=== PATIENT | male | born 1935 | race Caucasian/White ===

== ENCOUNTER 2020-04-10 07:02 | Day surgery (SDC) | payer MEDICARE, BC ==
[~2020-04-10 07:02] MED LIST: Lactated Ringers 1,000 ML IV SCH; Lidocaine 1%/Sod Bicarbonate in NS 8.4% 1 ML Syringe IDERM PRN; Sodium Chloride 0.9% 10 ML Syringe FLUSH PRN
[2020-04-10] MEDS ORDERED: Rocuronium 50 MG/5 ML Vial ONE (07:12)
[2020-04-10] MEDS ORDERED: Lidocaine 1% 4 ML ONE (07:13)
[2020-04-10] MEDS ORDERED: fentaNYL 250 MCG/5 ML SDV ONE (07:13)
[2020-04-10] MEDS ORDERED: Propofol 200 MG/20 ML SDV ONE (07:13)
[2020-04-10] MEDS ORDERED: Ondansetron 4 MG/2 ML SDV ONE (07:13)
[2020-04-10] MEDS ORDERED: ceFAZolin 1 GM Vial ONE (07:15)
[2020-04-10] MEDS ORDERED: Bupivacaine 0.5%/EPINEPHrine 1:200,000 50 ML MDV ONE (07:19)
--- NOTE | 2020-04-10 07:31 | PCM.PREANE ---
Preanesthetic Assessment - Lab Values: Laboratory Last Values COVID-19 PCR Not detected (NOT DETECT) 04/05/20 19:22 - Allergies Allergies/Adverse Reactions: Allergies Allergy/AdvReac Type Severity Reaction Status Date / Time Unable to Assess Allergy Verified 04/07/20 08:49 PreAnesthesia Questionnaire HEENT History: Reports: Allergic Rhinitis Cardiovascular History: Reports: Afib, Aneurysm, Hypertension Other Cardiovascular History: thoracic aortic aneurysm Respiratory History: Reports: COPD Other Gastrointestinal History: abdominal hernia, RLQ mass Genitourinary History: Reports: Prostate Disorder Endocrine/Metabolic History: Reports: Diabetes, Type II - SUBSTANCE USE Smoking Status *Q: Former Smoker Recreational Drug Use History: No - HOME MEDS Home Medications: Home Meds Apixaban [Eliquis] 5 mg PO DAILY 04/07/20 [History] Digoxin [Digox] 125 mcg PO DAILY 04/07/20 [History] Loratadine [Claritin] 10 mg PO DAILY PRN 04/07/20 [History] Metoprolol Tartrate 25 mg PO BID 04/07/20 [History] Mometasone Furoate [Nasonex] 17 gm NASBOTH ASDIRECTED 04/07/20 [History] Montelukast [Singulair] 10 mg PO DAILY 04/07/20 [History] Pravastatin [Pravachol] 40 mg PO DAILY 04/07/20 [History] metFORMIN [Glucophage] 1,000 mg PO DAILY 04/07/20 [History] - CURRENT (IN HOUSE) MEDS Current Meds: Current Medications Lactated Ringer's (Ringers, Lactated) 1,000 mls @ 125 mls/hr IV ASDIRECTED KD Stop: 04/10/20 23:00 Lidocaine/Sodium Bicarbonate (Buffered Lidocaine 1% In Ns 8.4%) 0.25 ml IDERM ONETIME PRN PRN Reason: Prior to IV Start Stop: 04/10/20 18:00 Sodium Chloride (Saline Flush) 10 ml FLUSH ASDIRECTED PRN PRN Reason: Keep Vein Open Stop: 04/10/20 18:00 Discontinued Medications Bupivacaine HCl/Epinephrine Bitart (Marcaine 0.5%/Epinephrine 1:200,000) Confirm Administered Dose 50 ml .ROUTE .STK-MED ONE Stop: 04/10/20 07:20 Cefazolin Sodium (Ancef) Confirm Administered Dose 2 gm .ROUTE .STK-MED ONE Stop: 04/10/20 07:16 Fentanyl (Sublimaze) Confirm Administered Dose 250 mcg .ROUTE .STK-MED ONE Stop: 04/10/20 07:14 Lidocaine HCl (Xylocaine-Mpf 1%) Confirm Administered Dose 4 mls @ as directed .ROUTE .STK-MED ONE Stop: 04/10/20 07:14 Ondansetron HCl (Zofran) Confirm Administered Dose 4 mg .ROUTE .STK-MED ONE Stop: 04/10/20 07:14 Propofol (Diprivan 20 Ml) Confirm Administered Dose 200 mg .ROUTE .STK-MED ONE Stop: 04/10/20 07:14 Rocuronium [place] (Zemuron) Confirm Administered Dose 50 mg .ROUTE .STK-MED ONE Stop: 04/10/20 07:13
[2020-04-10] MEDS ORDERED: HYDROmorphone 0.5 MG/0.5 ML Syringe IVPUSH PRN (07:47)
[2020-04-10] MEDS ORDERED: fentaNYL 100 MCG/2 ML SDV IVPUSH PRN (07:47)
--- NOTE | 2020-04-10 07:51 | PCM.PREANE ---
Preanesthetic Assessment - Review of Systems General: No Symptoms Pulmonary: No Symptoms Cardiovascular: No Symptoms Gastrointestinal: No Symptoms Neurological: No Symptoms Other: Reports: Diabetes - Physical Assessment Vital Signs: Last Vital Signs Temp 97.9 F 04/10/20 07:10 Pulse 65 04/10/20 07:10 Resp 16 04/10/20 07:10 BP 139/78 04/10/20 07:10 Pulse Ox 99 04/10/20 07:10 ASA Class: 3 Mental Status: Alert & Oriented x3 Airway Class: Mallampati = 2 Dentition: Reports: Dentures, Edentulous, Missing Tooth/Teeth (only six teeth left on lower jaw ) ROM/Head Extension: Limited/Partial Lungs: Clear to Auscultation, Normal Respiratory Effort Cardiovascular: Irregular Rhythm (Afib, rate controlled) - Lab Values: Laboratory Last Values POC Glucose 118 mg/dL (83-110) H 04/10/20 07:33 COVID-19 PCR Not detected (NOT DETECT) 04/05/20 19:22 - Allergies Allergies/Adverse Reactions: Allergies Allergy/AdvReac Type Severity Reaction Status Date / Time Unable to Assess Allergy Verified 04/07/20 08:49 - Acknowledgements Anesthesia Type Planned: General Anesthesia Pt an Appropriate Candidate for the Planned Anesthesia: Yes Alternatives and Risks of Anesthesia Discussed w Pt/Guardian: Yes Pt/Guardian Understands and Agrees with Anesthesia Plan: Yes PreAnesthesia Questionnaire HEENT History: Reports: Allergic Rhinitis Cardiovascular History: Reports: Afib, Aneurysm, Hypertension Other Cardiovascular History: thoracic aortic aneurysm Respiratory History: Reports: COPD Other Gastrointestinal History: abdominal hernia, RLQ mass Genitourinary History: Reports: Prostate Disorder Endocrine/Metabolic History: Reports: Diabetes, Type II - SUBSTANCE USE Smoking Status *Q: Former Smoker Recreational Drug Use History: No - HOME MEDS Home Medications: Home Meds Apixaban [Eliquis] 5 mg PO DAILY 04/07/20 [History] Digoxin [Digox] 125 mcg PO DAILY 04/07/20 [History] Loratadine [Claritin] 10 mg PO DAILY PRN 04/07/20 [History] Metoprolol Tartrate 25 mg PO BID 04/07/20 [History] Mometasone Furoate [Nasonex] 17 gm NASBOTH ASDIRECTED 04/07/20 [History] Montelukast [Singulair] 10 mg PO DAILY 04/07/20 [History] Pravastatin [Pravachol] 40 mg PO DAILY 04/07/20 [History] metFORMIN [Glucophage] 1,000 mg PO DAILY 04/07/20 [History] - CURRENT (IN HOUSE) MEDS Current Meds: Current Medications Lactated Ringer's (Ringers, Lactated) 1,000 mls @ 125 mls/hr IV ASDIRECTED KD Stop: 04/10/20 23:00 Lidocaine/Sodium Bicarbonate (Buffered Lidocaine 1% In Ns 8.4%) 0.25 ml IDERM ONETIME PRN PRN Reason: Prior to IV Start Stop: 04/10/20 18:00 Sodium Chloride (Saline Flush) 10 ml FLUSH ASDIRECTED PRN PRN Reason: Keep Vein Open Stop: 04/10/20 18:00 Discontinued Medications Bupivacaine HCl/Epinephrine Bitart (Marcaine 0.5%/Epinephrine 1:200,000) Confirm Administered Dose 50 ml .ROUTE .STK-MED ONE Stop: 04/10/20 07:20 Cefazolin Sodium (Ancef) Confirm Administered Dose 2 gm .ROUTE .STK-MED ONE Stop: 04/10/20 07:16 Fentanyl (Sublimaze) Confirm Administered Dose 250 mcg .ROUTE .STK-MED ONE Stop: 04/10/20 07:14 Lidocaine HCl (Xylocaine-Mpf 1%) Confirm Administered Dose 4 mls @ as directed .ROUTE .STK-MED ONE Stop: 04/10/20 07:14 Ondansetron HCl (Zofran) Confirm Administered Dose 4 mg .ROUTE .STK-MED ONE Stop: 04/10/20 07:14 Propofol (Diprivan 20 Ml) Confirm Administered Dose 200 mg .ROUTE .STK-MED ONE Stop: 04/10/20 07:14 Rocuronium [place] (Zemuron) Confirm Administered Dose 50 mg .ROUTE .STK-MED ONE Stop: 04/10/20 07:13
[2020-04-10] MEDS ORDERED: Etomidate 2 MG/ML 20 ML SDV IVPUSH ONE (07:53)
[2020-04-10] MEDS ORDERED: Succinylcholine/Sod PF 100 MG/5 ML SYRINGE IV ONE (08:18)
[2020-04-10] MEDS ORDERED: Esmolol 100 MG/10 ML SDV ONE (10:09)
[2020-04-10] MEDS ORDERED: Metoprolol Tartrate 5 MG/5 ML SDV ONE (10:10)
--- NOTE | 2020-04-10 10:20 | PCM.PRNOTE ---
- Free Text/Narrative Note: Date: 04/10/2020 Operation: laparoscopic right inguinal hernia repair Findings: pantaloon hernia Surgeon: Zeb Figueroa MD Assisting: CHASITY Kowalski Pre-op abx: 2 g ancef IV EBL: 5 cc Specimen: hernia sac and contents Detailed Report: The patient was taken to the operating room and placed in supine position. T imeout was performed, and general endotracheal anesthesia initiated. A Hutson catheter was placed for decompression of the bladder, and the patient's left arm was tucked at his side. Abdominal hair was clipped, and the abdomen was prepped and draped in usual sterile fashion. A Veress needle was inserted at Eid's point for establishment of pneumoperitoneum. This was performed without complication. Air was then aspirated with a syringe at the mid epigastrium at the midline, and a 12 mm port was placed at this site. The 5 mm 30 degree laparoscope was inserted in the abdomen, and contents were inspected. Under laparoscopic visualization, additional 5 mm ports were placed at the left upper and right upper quadrants. The patient was positioned in Trendelenburg, and rotated towards the surgeon standing on the patient's left side. The hernia defect was visible; there were no incarcerated hernia contents. The defect appeared to be consistent with a pantaloon hernia, with a direct and indirect component straddling the right epigastric vessels. The direct hernia sac was inverted and amputated using the LigaSure. Next, monopolar energy was used to make a transverse cut through the peritoneum starting at approximately the level of the right ASIS over towards the right lateral umbilical fold. This plane was developed bluntly, down towards the pubic symphysis. The peritoneum was cleared from its anterior attachments. The indirect hernia sac which was wide and shallow was inverted. A lipomatous lesion was dissected free from the area where the direct hernia sac was. The sac and lesion which were labeled as hernia contents were passed off for pathologic analysis. With a good landing zone for the mesh established, a 10 x 15 cm oval shaped mesh with biologic coating was introduced into the field, this was cut to shape with scissors and introduced into the abdomen. The mesh was placed to provide good inferior and medial overlap at the right pubic tubercle. The mesh was secured at Pedro Luis's ligament with the secure strap. The mesh was laid flat and a few securing secure strap tacks were placed, taking care to avoid neurovascular structures. The peritoneal flap was then closed using the secure strap. The larger port site was closed at the level of fascia with a laparoscopic suture passer using 0 Vicryl. Pneumoperitoneum was released, and ports removed from the body. All skin incisions were closed with subcuticular absorbable Vicryl suture. Wounds were dressed with Dermabond. The patient tolerated the procedure well, no complications noted intraoperatively. Zeb Figueroa MD General Surgery
--- NOTE | 2020-04-10 10:55 | PCM.POSTAN ---
POST ANESTHESIA ASSESSMENT - MENTAL STATUS Mental Status: Alert, Oriented, Confused - VITAL SIGNS Vital Signs: Last Vital Signs Temp 98.5 F 04/10/20 10:02 Pulse 65 04/10/20 07:10 Resp 21 H 04/10/20 10:30 BP 161/74 H 04/10/20 10:30 Pulse Ox 99 04/10/20 10:30 - RESPIRATORY Respiratory Status: Respiratory Rate WNL, Airway Patent, O2 Saturation Stable - CARDIOVASCULAR CV Status: Elevated Pulse Rate, Elevated Blood Pressure - GASTROINTESTINAL GI Status: No Symptoms - PAIN Pain Score: 0 - POST OP HYDRATION Hydration Status: Adequate & Stable - OBSERVATIONS Free Text/Narrative:: Metoprolol 5 mg given per elevated BP and HR
--- NOTE | 2020-04-10 13:24 | PCM48HPAN ---
Post Anesthesia Note - EVALUATION WITHIN 48HRS OF ANESTHETIC Vital Signs in Normal Range: Yes Respiratory Function Stable: Yes Airway Patent: Yes Cardiovascular Function Stable: Yes Hydration Status Stable: Yes Pain Control Satisfactory: Yes Nausea and Vomiting Control Satisfactory: Yes Mental Status Recovered: Yes Vital Signs: Last Vital Signs Temp 97.0 F 04/10/20 10:50 Pulse 58 L 04/10/20 12:00 Resp 20 04/10/20 12:00 BP 129/64 04/10/20 12:00 Pulse Ox 95 04/10/20 12:00 - COMMENTS/OBSERVATIONS Free Text/Narrative:: Patient is being discharged to home
== END 2020-04-10 13:37 | disposition home or self-care (01) ==
LOC: JD.SDS 07:02
PROVIDERS: ATTEND Surgery
DX: K40.90 Unilateral inguinal hernia, without obstruction or gangrene, not specified as recurrent (principal); Z11.59 Encounter for screening for other viral diseases; J44.9 Chronic obstructive pulmonary disease, unspecified; I10 Essential (primary) hypertension; E11.9 Type 2 diabetes mellitus without complications; Z88.8 Allergy status to other drugs, medicaments and biological substances; Z79.84 Long term (current) use of oral hypoglycemic drugs; Z79.899 Other long term (current) drug therapy; Z87.891 Personal history of nicotine dependence
CPT/HCPCS: 49650; 82962; 88302; C1781; J0330; J0690; J2001; J2405; J3010; J3490; J7120; U0002; 00790; J2704